=== PATIENT | male | born 2000 | race African-American/Black ===

== ENCOUNTER 2018-07-06 18:51 | Emergency (ER) | payer SELFPAY ==
[~2018-07-06] VITALS: Ht 170.2 cm; Wt 62.1 kg
[2018-07-06 18:56] VITALS: Ht 170.2 cm; Wt 62.1 kg
[2018-07-06 20:35] LABS: microscopic required? NO
[2018-07-06 20:44] LABS: UA SPECIFIC GRAVITY 1.025 (1.005-1.035); urine erythrocyte NEGATIVE (NEGATIVE)
[2018-07-06 21:24] VITALS: BP 124/88
== END 2018-07-06 21:24 | disposition home or self-care (01) ==
LOC: ED 18:51
PROVIDERS: Emergency Medicine
DX: N44.2 Benign cyst of testis (principal)
CPT/HCPCS: 87491; 87591; Q0092